=== PATIENT | female | born 1975 | race Caucasian/White ===

== ENCOUNTER 2020-01-17 22:31 | Inpatient (IN) | payer BC ==
[~2020-01-17] VITALS: Ht 165.1 cm; Wt 93.4 kg
[2020-01-17 22:31] VITALS: BP 123/72
--- NOTE | 2020-01-17 23:12 | NUR ---
SPOKE TO CARLOS VALDERRAMAION DUNIA REGARDING OVERDOSE OF TRAZADONE, REQUIP, AND ACYLCOVIR, CARLOS RECOMMENDS HYDRATION, RULE OUT OTHER TOXINS, AND WATCH FOR HEADACHE, NAUSEA, AND VOMITTING.
[2020-01-17 23:19] LABS: HEMOGLOBIN 15.9 gm/dL (12.0-15.0); MCHC 34.5 g/dL (28.0-37.0); MCV 92.8 fL (80.0-100.0); NUCLEATED RBCS 0 /100WBC; PLATELET COUNT* 307 thou/uL (150-400); RBC 4.96 mil/uL (4.20-5.00); WBC 15.2 thou/uL (4.0-11.0)
[2020-01-17 23:21] LABS: CALCIUM 8.5 mg/dL (8.5-10.1); POTASSIUM 3.2 mmol/L (3.5-5.1)
[2020-01-17 23:26] LABS: ALCOHOL 106 mg/dL (<10); SALICYLATE 3.2 mg/dL (2.8-20.0)
[2020-01-17 23:28] LABS: URINE BILIRUBIN NEGATIVE (Negative); URINE BLOOD NEGATIVE (Negative); URINE CLARITY CLEAR; URINE COLOR YELLOW; URINE GLUCOSE-RANDOM NEGATIVE (Negative); URINE KETONES NEGATIVE (Negative); URINE LEUKOCYTES-REFLEX NEGATIVE (Negative); URINE NITRITE-REFLEX NEGATIVE (Negative); URINE PROTEIN NEGATIVE (Negative); URINE SPECIFIC GRAVITY 1.025 (1.005-1.030); URINE UROBILINOGEN 0.2 E.U./dl (0.2-1.0)
[2020-01-17 23:28] LABS: ACETAMINOPHEN < 2 ug/mL (10-30)
[2020-01-17 23:31] LABS: TOTAL BILIRUBIN 0.5 mg/dL (<0.1-1.0); TOTAL PROTEIN 7.6 g/dL (6.4-8.2)
[2020-01-17 23:32] LABS: AMP/METHAMP Negative (Negative); BARBITURATES Negative (Negative); BENZODIAZEPINES Negative (Negative); COCAINE Negative (Negative); METHADONE Negative (Negative); OPIATES Negative (Negative); PCP Negative (Negative); THC Negative (Negative)
[2020-01-18] VITALS (11 sets, daily range): BP systolic 91–136; BP diastolic 53–88
[2020-01-18 00:41] LABS: ABSOLUTE LYMPHOCYTES 1.7 thou/uL (0.8-5.3); ABSOLUTE MONOCYTES 0.6 thou/uL (0.0-1.2); ABSOLUTE NEUTROPHILS 12.9 thou/uL (1.6-8.1)
[2020-01-18 00:42] LABS: PLATELET ESTIMATE ADEQUATE
[2020-01-18 01:30] LABS: BE -2.5 mmol/L (-2 to +3); PCO2 32.5 mmHg (35.0-45.0); PO2 76.1 mmHg (75.0-100.0); pH 7.424 (7.340-7.450)
--- NOTE | 2020-01-18 05:23 | NUR ---
RECIEVED PT FROM ER AT 0320H, PUT IN 1CU6 AND HOOKED TO FASHION MERCHANDISER. VITALS STABLE AND SINUS RYTHM. ROOM CLEARED, SI PT. PT WAS ORIENTED, MILD DROWSY AND WITH FLAT AFFECT AT TIMES. PT REFUSED TO CONTACT ANY FAMILY. [facility] CALLED AND ASKED TO SEND ANOTHER SALYCILATE LEVEL AND CORRECT POTASIUM LEVEL. NO MORE TREMORS OR JERKY MOVEMENT NOTED. KEPT SAFE. CONTINUE MONITORING AND TOWARD GOALS.
[2020-01-18] MEDS ORDERED: FLUOXETINE HCL20 M1 PO (08:35)
[2020-01-18] MEDS ORDERED: CLONAZEPAM 0.50.5 M1 PO (08:38)
[2020-01-18] MEDS ORDERED: ZYPREXA 5 MG TAB5 M1 PO (08:38)
[2020-01-18] MEDS ORDERED: BUSPIRONE HCL10 MG PO (08:40)
[2020-01-18] MEDS ORDERED: TRAZODONE HCL50 MG PO (08:43)
[2020-01-18] MEDS ORDERED: REXULTI0.25 MG PO (08:43)
[2020-01-18] MEDS ORDERED: ACYCLOVIR 400400 MG PO (08:45)
[2020-01-18] MEDS ORDERED: PROPRANOLOL 1010 M1 PO (08:50)
--- NOTE | 2020-01-18 09:15 | NUR ---
PSYCH CONSULT PERFORMED VIA TELEPSYCH
--- NOTE | 2020-01-18 10:30 | NUR ---
PT TO ROOM 223 VIA WC. SI PRECAUTIONS REMAIN IN PLACE. SITTER AT BS
--- NOTE | 2020-01-18 15:21 | EKG ---
[place] [address] ELECTROCARDIOGRAM REPORT Name: KARLA ARZATE Room: [address] ADM IN M.R.#: [id number] Admission: 01/18/20 Attend Phys: Georgiana Vick Discharge: Date of : 79 Date of Service: 01/17/20 2244 Report #: [id number] THIS REPORT FOR: //name// [facility] ED Test Date: 2020-01-17 Test Time: 22:44:55 Pat Name: KARLA ARZATE Department: Room: [address] Gender: F Restaurant Server: JAMIR : 1975 Requested By: Daysi Hart Order Number: [id number] Maninder MD: Marlo Webster Measurements Intervals [place] Rate: 63 P: 34 SC: 146 QRS: 26 QRSD: 111 T: 64 QT: 589 QTc: 604 Interpretive Statements Sinus rhythm Prolonged QT interval No previous ECG available for comparison Electronically Signed On 01-18-2020 15:21:40 CDT by Marlo Webster [email or web address] <ELECTRONICALLY SIGNED> By: Marlo Webster MD, [facility] 01/18/20 1521 2244 2244 Marlo Webster MD, [facility] /EPI
--- NOTE | 2020-01-18 18:07 | NUR ---
PT RESTING IN BED THROUGHOUT SHIFT. PT UP TO BR WITH STEADY GAIT. SITTER AT BS FOR SAFETY. SI PRECAUTIONS MAINTAINED. PT STATES SHE "DOESNT FEEL GOOD". TOLERATING PO WELL.CONTINUES TO ENDORSE SI. IVF INFUSING. LIZETH ESPINOZA THIS AFTERNOON,PT VOIDING WELL. PT CALM AND COOPERATIVE.
[2020-01-19] VITALS: BP 99/59
[2020-01-19 04:00] VITALS: BP 102/46
--- NOTE | 2020-01-19 06:28 | NUR ---
NO ACUTE CHANGES THROUGHOUT SHIFT. VSS. PT REFUSED MORNING MEDS AND REFUSED BLOOD DRAW THIS AM. ALL ROUNDINGS COMPLETED, ALL NEEDS MET, FULL ASSESSMENT COMPLETED CHARTED.
[2020-01-19 07:30] VITALS: BP 101/72
--- NOTE | 2020-01-19 10:31 | NUR ---
SW met with pt to complete initial assessment and discuss dc planning. SW mentioned doctor's recommendation for inpt psych due to pt SI. Pt was sleeping, SW awoke to discuss assessment and care plan. Pt lives in [facility] and was driving towards her ex boyfriends house (according to pt nurse reported yesterday) and decided to pull out operator and ask for help. Pt did not provide any support/family contact information but said that she does have family and wants her phone even though she does not want her family to know that she is in the hospital. Pt has hx of inpt psych at [facility]. SW explained SW to send referral to find inpt psych treatment as recommended and asked pt if pt would prefer [facility] or [facility]. Pt said she wants to stay in [facility] because she really wants to figure out how to get her car. SW said that SW would update pt of inpt psych options. Pt asked to see SW a few minutes later and pt said she really wants to get her care and leave, pt said she does not need inpt psych, she said she didn't say anything that would give anyone the impression that she needed psych assistance. Pt says she is okay and just needs to get her car; pt expressed she is just anxious about receiving her car that also holds her possessions. SW to speak with [place] yazmin to determine if car could be held and how long and possible ways to be able to assure pt of safety of car and that she will eventually be able to receive her car again even if after an inpt psych treatment. SW faxed referral to [facility] and will fax to other psych facilities as needed to assist with safe dc planning. [facility] inpt psych ph [phone], fax [phone]
[2020-01-19] MEDS ORDERED: BUSPIRONE HCL5 MG PO (11:53)
[2020-01-19 12:10] VITALS: BP 102/59
[2020-01-19 12:26] LABS: ABSOLUTE BASOPHILS 0.1 thou/uL (0.0-0.2); ABSOLUTE EOSINOPHILS 0.1 thou/uL (0.0-0.7); ABSOLUTE MONOCYTES 0.9 thou/uL (0.0-1.2); ABSOLUTE NEUTROPHILS 6.9 thou/uL (1.6-8.1); BASOPHILS 1.2 %; EOSINOPHILS 0.8 %; HEMATOCRIT 39.2 % (37.0-47.0); MCH 32.5 pg (26.0-34.0); MONOCYTES 8.9 %; MPV 8.9 fl. (7.2-11.1); NUCLEATED RBCS 0 /100WBC; POLYS 69.1 %; RBC 4.21 mil/uL (4.20-5.00); RDW-CV 12.8 % (10.5-14.5); WBC 9.9 thou/uL (4.0-11.0)
[2020-01-19 12:32] LABS: CALCIUM 7.7 mg/dL (8.5-10.1); CREATININE 1.1 mg/dL (0.6-1.3)
[2020-01-19 12:33] LABS: HEMOGLOBIN 13.7 gm/dL (12.0-15.0); PLATELET COUNT* 228 thou/uL (150-400)
[2020-01-19 15:31] VITALS: BP 102/59
== END 2020-01-19 16:30 | disposition home or self-care (01) | DRG 917 ==
LOC: M.ERS 22:31 → M.2W 01-18 00:49 → M.ICU 01-18 00:49 → M.TBA-ER 01-18 00:49 → M.ICU 01-18 03:35 → M.2W 01-18 10:50
PROVIDERS: Emergency Medicine; Internal Medicine; ADMIT Internal Medicine; ATTEND Internal Medicine
DX: T50.992A Poisoning by other drugs, medicaments and biological substances, intentional self-harm, initial encounter (principal); G92 Toxic encephalopathy; R45.851 Suicidal ideations; F32.9 Major depressive disorder, single episode, unspecified; F41.9 Anxiety disorder, unspecified; F17.210 Nicotine dependence, cigarettes, uncomplicated; D72.829 Elevated white blood cell count, unspecified; E87.6 Hypokalemia; F10.229 Alcohol dependence with intoxication, unspecified; Y90.5 Blood alcohol level of 100-119 mg/100 ml; Y92.89 Other specified places as the place of occurrence of the external cause; Z79.899 Other long term (current) drug therapy; Z03.818 Encounter for observation for suspected exposure to other biological agents ruled out